=== PATIENT | male | born 2000 | race Caucasian/White ===

== ENCOUNTER 2022-01-22 19:25 | Emergency (ER) | payer OTHER ==
[~2022-01-22] VITALS: Ht 182.9 cm; Wt 102.6 kg
[2022-01-22 21:41] LABS: GC DNA AMPLIFICATION NEGATIVE (NEGATIVE)
[2022-01-23] MEDS ORDERED: DOXYCYCLINE HYCLATE 100MG TABLET PO ONE (01:15)
[2022-01-23] MEDS ORDERED: DOXY-443 PO (01:36)
[2022-01-23 01:47] VITALS: BP 132/77
[2022-01-23 09:23] LABS: HEPATITIS B SURFACE ANTIBODY POSITIVE (POSITIVE); HEPATITIS B SURFACE ANTIGEN NEGATIVE (NEGATIVE); HEPATITIS C VIRUS ABY INDEX 0.1 INDEX (<0.8); HIV 1&2 SCREEN CENTAUR NEGATIVE (NEGATIVE)
== END 2022-01-23 02:01 | disposition home or self-care (01) ==
LOC: M ED 19:25
DX: Z20.2 Contact with and (suspected) exposure to infections with a predominantly sexual mode of transmission (principal); A74.9 Chlamydial infection, unspecified